=== PATIENT | male | born 1970 | race Asian ===

== ENCOUNTER 2019-06-11 12:29 | Day surgery (SDC) | payer OTHER, BC ==
[2019-06-11] MEDS ORDERED: PROPOFOL 20 ML (13:38)
[2019-06-11] MEDS ORDERED: LIDOCAINE 2% (SDV) 5 ML INJ (13:38)
[2019-06-11] MEDS ORDERED: FENTAnyl 50 MCG/ML VIAL (15:05)
== END 2019-06-11 16:35 | disposition home or self-care (01) ==
LOC: GIL 12:29
DX: Z12.11 Encounter for screening for malignant neoplasm of colon (principal); K64.8 Other hemorrhoids; K29.30 Chronic superficial gastritis without bleeding; E78.5 Hyperlipidemia, unspecified
CPT/HCPCS: 43239; 88305; 88312